=== PATIENT | female | born 1945 | race Caucasian/White ===

== ENCOUNTER 2021-05-20 10:42 | Emergency (ER) | payer MEDICARE, BC ==
[~2021-05-20] VITALS: Ht 162.6 cm; Wt 85.9 kg
[~2021-05-20 10:42] MED LIST: AMOX/K CLAV500 MG PO; AMOXICILLIN250 M1 PO; AMOXICILLIN500 M2 PO; AUGMENTIN500TAB PO; CIPRO XR500 M2 PO; KEFLEX500 MG PO; MACRODANTIN100 MG PO; METRONIDAZOL500 MG PO; NITROFURANTN100 M1 PO; ONDANSETRON4 MG PO; POTASSIUM GLUCONATE PO; TENORMIN PO; TENORMIN50 MG PO; TRIAM/HCTZ1 CAP PO; ULTRAM50 M1 PO
[2021-05-20 11:43] LABS: HEMATOCRIT 45.3 % (37.0-47.0); HEMOGLOBIN 14.8 g/dl (12.0-16.0); IMMATURE GRANULOCYTES 0.3 % (0.0-5.0); MEAN CELL VOLUME 96.4 fL CALC (80.0-100.0); MEAN CORPUSCULAR HGB 31.5 pG CALC (26.0-32.0); MEAN CORPUSCULAR HGB CONC 32.7 g/dL CAL (32.0-36.0); NEUT# 8.05 thou/uL (2.00-7.15); RED BLOOD COUNT 4.7 mill/uL (4.20-5.60); RED CELL DISTRI WIDTH 14.7 % (11.5-15.5)
[2021-05-20 12:06] LABS: ALBUMIN 3.7 g/dL (3.2-5.0); ALKALINE PHOSPHATASE 59 u/l (38-126); BILIRUBIN, TOTAL 0.8 mg/dL (0.0-1.4); BUN 21 mg/dL (8-23); BUN/CREATININE RATIO 17 (12-20 (CALC)); CARBON DIOXIDE 30 mmol/l (22-30); CHLORIDE 93 mmol/l (95-108); CREATININE 1.2 mg/dL (0.5-1.0); GFR 44 ML/MIN (>=60 (CALC)); GFR FOR AFR.AMER. 53 ML/MIN (>=60 (CALC)); POTASSIUM 3.7 mmol/l (3.5-5.1); TOTAL PROTEIN 7.2 g/dL (6.3-8.2)
[2021-05-20 12:18] LABS: MYOGLOBIN 137 ng/mL (0 - 62)
[2021-05-20 12:26] LABS: ANION GAP 13 (6-22 (CALC)); SGOT/AST 83 u/l (9-36); SODIUM 132 mmol/l (137-146)
[2021-05-20 14:28] VITALS: BP 153/70
== END 2021-05-20 14:30 | disposition left against medical advice (07) ==
LOC: ED 10:42
PROVIDERS: Emergency Medicine
DX: U07.1 COVID-19 (principal); R09.02 Hypoxemia; I10 Essential (primary) hypertension; Z91.19 Patient's noncompliance with other medical treatment and regimen
CPT/HCPCS: Q9967

== ENCOUNTER 2021-05-22 17:18 | Inpatient (IN) | payer MEDICARE, BC ==
[~2021-05-22] VITALS: Ht 152.4 cm; Wt 83.3 kg
[2021-05-22 17:53] LABS: GFR 54 ML/MIN (>=60 (CALC)); GFR FOR AFR.AMER. > 60 ML/MIN (>=60 (CALC))
[2021-05-22 18:19] LABS: HEMATOCRIT 48.1 % (37.0-47.0); HEMOGLOBIN 15.5 g/dl (12.0-16.0); MEAN CELL VOLUME 96.4 fL CALC (80.0-100.0); MEAN CORPUSCULAR HGB 31.1 pG CALC (26.0-32.0); MEAN CORPUSCULAR HGB CONC 32.2 g/dL CAL (32.0-36.0); NEUT# 10.36 thou/uL (2.00-7.15); RED BLOOD COUNT 4.99 mill/uL (4.20-5.60); RED CELL DISTRI WIDTH 14.4 % (11.5-15.5)
[2021-05-22 18:31] LABS: ALBUMIN 3.9 g/dL (3.2-5.0); ALKALINE PHOSPHATASE 73 u/l (38-126); ANION GAP 13 (6-22 (CALC)); BILIRUBIN, TOTAL 0.9 mg/dL (0.0-1.4); BUN 18 mg/dL (8-23); BUN/CREATININE RATIO 18 (12-20 (CALC)); C-REACTIVE PROTEIN 7.3 mg/dL (0-0.9); CARBON DIOXIDE 27 mmol/l (22-30); CHLORIDE 96 mmol/l (95-108); GFR 54 ML/MIN (>=60 (CALC)); GFR FOR AFR.AMER. > 60 ML/MIN (>=60 (CALC)); POTASSIUM 3.7 mmol/l (3.5-5.1); SGOT/AST 66 u/l (9-36); SODIUM 132 mmol/l (137-146); TOTAL PROTEIN 7.5 g/dL (6.3-8.2)
--- NOTE | 2021-05-22 20:15 | NUR ---
Reassessment of patient completed. No distress noted.
[2021-05-22 20:44] LABS: URINE BILIRUBIN - DIPSTICK NEGATIVE (NEGATIVE); URINE BLOOD DIPSTICK NEGATIVE (NEGATIVE); URINE COLOR YELLOW; URINE GLUCOSE - DIPSTICK NEGATIVE (NEGATIVE); URINE KETONE NEGATIVE (NEGATIVE); URINE LEUK ESTERASE NEGATIVE (NEGATIVE); URINE PH 7.5 (4.5-8.0); URINE PROTEIN - DIPSTICK TRACE mg/dL (NEG-TRACE); URINE SPECIFIC GRAVITY 1.025
[2021-05-22 20:46] LABS: URINE NITRITE - DIPSTICK NEGATIVE (Negative)
--- NOTE | 2021-05-22 22:25 | NUR ---
Admission Note Report Given to: Thomas TINAJERO LPN Transported by: Wheelchair X Stretcher Transported with: X Nurse Transporter X Patent IV X O2 X Sql Report Writer Location: ICU X MS2
--- NOTE | 2021-05-22 22:35 | NUR ---
PT ARRIVED ON UNIT ESCORTED BY ER STAFF VIA STRETCHER. ASSESSMENTS COMPLETE, PLEASE SEE DOCUMENTATION. 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 PT ALSO HAS A HX WITH CARPAL TUNNEL WHICH DECREASES HER ABILITY TO FEEL ITEMS WITH HER FINGERS. TUBER OPERATOR APPLIED TELEMETRY STCKER OVER CALL WELCH SO THAT PT WILL BE ABLE TO FEEL STICKER AND WHERE TO PRESS TO ASK FOR ASSISTANCE. PT WAS ABLE TO SUCCESSFULLY PRESS CALL LIGHT X 2 WITHOUT ASSISTANCE. BREATHING IS EVEN AND UNLABORED. NO S/S OF DISTRESS NOTED. IV REMAINS TO LFA-SL, FLUSHES EASILY. SAFETY PRECAUTIONS REMAIN IN PLACE. WILL CONTINUE TO MONITOR
[2021-05-22 23:00] VITALS: BP 169/78
--- NOTE | 2021-05-23 | NUR ---
PT RESTING QUIETLY, NO CONCERNS VOICED. NO S/S OF DISTRESS NOTED. BREATHING IS EVEN AND UNLABORED. PT CONTINUES ON 7L OF HIGH FLOW O2 VIA NC, TOLERATING WELL. O2 SATURATIONS REMAINING ABOVE 90% ON CURRENT O2 ORDERS. SAFETY PRECAUTIONS REMAIN IN PLACE. WILL MONITOR
[2021-05-23 00:59] VITALS: BP 160/70
--- NOTE | 2021-05-23 04:15 | NUR ---
PT RESTING QUIETLY. BREATHING IS EVEN AND UNLABORED. NO COMPLAINTS VOICED AT THIS TIME. SAFETY PRECAUTIONS REMAIN IN PLACE. WILL MONITOR
[2021-05-23 04:39] VITALS: BP 164/70
[2021-05-23 05:40] LABS: HEMATOCRIT 44.8 % (37.0-47.0); HEMOGLOBIN 14.4 g/dl (12.0-16.0); MEAN CELL VOLUME 97.6 fL CALC (80.0-100.0); MEAN CORPUSCULAR HGB 31.4 pG CALC (26.0-32.0); MEAN CORPUSCULAR HGB CONC 32.1 g/dL CAL (32.0-36.0); NEUT# 6.85 thou/uL (2.00-7.15); RED BLOOD COUNT 4.59 mill/uL (4.20-5.60); RED CELL DISTRI WIDTH 14.2 % (11.5-15.5)
[2021-05-23 06:00] LABS: ALKALINE PHOSPHATASE 63 u/l (38-126); ANION GAP 13 (6-22 (CALC)); BILIRUBIN, TOTAL 0.7 mg/dL (0.0-1.4); BUN 18 mg/dL (8-23); BUN/CREATININE RATIO 19 (12-20 (CALC)); C-REACTIVE PROTEIN 5.2 mg/dL (0-0.9); CARBON DIOXIDE 26 mmol/l (22-30); CHLORIDE 101 mmol/l (95-108); CREATININE 0.9 mg/dL (0.5-1.0); GFR > 60 ML/MIN (>=60 (CALC)); GFR FOR AFR.AMER. > 60 ML/MIN (>=60 (CALC)); POTASSIUM 4.2 mmol/l (3.5-5.1); SGOT/AST 50 u/l (9-36); SODIUM 135 mmol/l (137-146); TOTAL PROTEIN 6.1 g/dL (6.3-8.2)
--- NOTE | 2021-05-23 07:15 | NUR ---
BEDSIDE REPORT RECEIVED. WILL MONITOR.
[2021-05-23 11:06] VITALS: BP 162/65
[2021-05-23 15:10] VITALS: BP 148/65
--- NOTE | 2021-05-23 15:29 | NUR ---
PT LYING IN BED ASLEEP, CAMERA MONITORING. NO DISTRESS NOTED, WILL CONTINUE TO MONITOR.
[2021-05-23 19:00] VITALS: BP 165/72
--- NOTE | 2021-05-23 20:10 | NUR ---
pt resting quietly in bed, no complaints voiced at this time. denies pain. breathing even and unlabored. pt refused lovenox injection, educated on the rationale behind medication, pt continued to refuse. assessments completed, please see documentation. safety precautions remain in place. will continue to monitor
[2021-05-24] VITALS: BP 134/57
--- NOTE | 2021-05-24 | NUR ---
pt remains stable at this time. o2 saturations remain between 90%-93%. breathing even and unlabored. safety precautions in place, will monitor
[2021-05-24 04:00] VITALS: BP 161/69
--- NOTE | 2021-05-24 04:07 | NUR ---
PT RESTING QUIETLY AT THIS TIME, NO COMPLANITS VOICED. BREATHING EVEN AND UNLABORED. BREATHING IS SHALLOW AT TIMES. SAFETY PRECAUTIONS REMAIN IN PLACE. NO S/S OF DISTRESS
--- NOTE | 2021-05-24 05:38 | NUR ---
UPON WALKING PAST PT ROOM, NOTED THAT PT WAS UP TO BSC WITHOUT HER O2 ON, PLACED PT BACK ON OYGEN PER ORDER AND NOTED THAT PT O2 SATURATION WAS 75%, PT WAS TAKING AN EXTENDED PERIOD OF TIME TO RECOVER, INCREASED HIGH FLOW TO 10L WHILE PT IS RECOVERING. PT REFUSES TO LAY IN THE PRONE POSITION. WILL DECREASE O2 ONCE PT HAS FULLY RECOVERED TO A NORMAL O2 SATURATION.
[2021-05-24 05:56] LABS: HEMATOCRIT 47.3 % (37.0-47.0); HEMOGLOBIN 15.1 g/dl (12.0-16.0); IMMATURE GRANULOCYTES 0.9 % (0.0-5.0); MEAN CELL VOLUME 98.7 fL CALC (80.0-100.0); MEAN CORPUSCULAR HGB 31.5 pG CALC (26.0-32.0); MEAN CORPUSCULAR HGB CONC 31.9 g/dL CAL (32.0-36.0); NEUT# 10.51 thou/uL (2.00-7.15); RED BLOOD COUNT 4.79 mill/uL (4.20-5.60); RED CELL DISTRI WIDTH 14.2 % (11.5-15.5)
[2021-05-24 06:10] LABS: ALBUMIN 3.2 g/dL (3.2-5.0); ALKALINE PHOSPHATASE 63 u/l (38-126); ANION GAP 12 (6-22 (CALC)); BILIRUBIN, TOTAL 0.6 mg/dL (0.0-1.4); BUN 23 mg/dL (8-23); BUN/CREATININE RATIO 24 (12-20 (CALC)); CARBON DIOXIDE 27 mmol/l (22-30); CHLORIDE 102 mmol/l (95-108); GFR 54 ML/MIN (>=60 (CALC)); GFR FOR AFR.AMER. > 60 ML/MIN (>=60 (CALC)); POTASSIUM 4.4 mmol/l (3.5-5.1); SGOT/AST 55 u/l (9-36); SODIUM 137 mmol/l (137-146); TOTAL PROTEIN 6.3 g/dL (6.3-8.2)
--- NOTE | 2021-05-24 08:00 | NUR ---
BEDSIDE REPORT RECEIVED, PT SITTING IN CHAIR WITH EYES CLOSED. ASSESSMENT PERFORMED. PT STATING SHE DOESNT FEEL GOOD AND SHE CANT DO ANYTHING FOR HERSELF. BREAKFAST PLACED AT BEDSIDE TABLE, PT STATED ITS GOING TO TAKE HER A FEW HOURS TO EAT. JUST LEAVE IT THERE. NO DISTRESS AT THIS TIME WILL CONTINUE TO MONITOR.
[2021-05-24 11:38] VITALS: BP 174/74
--- NOTE | 2021-05-24 14:08 | NUR ---
PT LYING IN BED EYES CLOSED. EGG SEPARATOR, IS REINFORCEMENT, TEACH AND TRAIN ON INHAILER USE/SE/INDICATION. VERBALIZES UNDERSTANDING.
--- NOTE | 2021-05-24 16:00 | NUR ---
RUNNING REMDESIVIR AND AZITHROMYCIN AT 150 PER HR, PT C/O PAIN AT IV SITE WHEN RAN A ORDERED SPEED
[2021-05-24 16:09] VITALS: BP 162/70
--- NOTE | 2021-05-24 18:50 | NUR ---
REPORT RECEIVED FROM Levi ASHER
[2021-05-24 18:54] VITALS: BP 154/68
--- NOTE | 2021-05-24 20:31 | NUR ---
PATIENT RESTING COMFORTABLY.NORMAL HEART SOUNDS SB ON TELE, CRACKLES IN LOWER BASES, DIMMINSHED LUNG SOUNDS ELSEWHERE. PT ON 8L HF READING 94-96%. ACTIVE BOWEL SOUNDS LAST BM 05/23, DENIES ANY ISSUES. #18 IN THE LAC SALINE LOCK PLAN OF CARE REVIEWED, CALL LIGHT AND BEDSIDE TABLE WITHIN REACH
[2021-05-25] VITALS: BP 162/67
--- NOTE | 2021-05-25 00:45 | NUR ---
PATIENT UP TO THE RESTROOM AT THIS TIME
[2021-05-25 04:00] VITALS: BP 165/87
--- NOTE | 2021-05-25 04:51 | NUR ---
PATIENT SLEEPING SOUNDLY, NO APPARENT DISTRESS, CALL LIGHT AND BEDISITE TABLE WITHIN REACH
[2021-05-25 05:33] LABS: HEMATOCRIT 43.3 % (37.0-47.0); IMMATURE GRANULOCYTES 1.3 % (0.0-5.0); MEAN CORPUSCULAR HGB 31.7 pG CALC (26.0-32.0); MEAN CORPUSCULAR HGB CONC 32.3 g/dL CAL (32.0-36.0); NEUT# 7.94 thou/uL (2.00-7.15); RED BLOOD COUNT 4.42 mill/uL (4.20-5.60)
[2021-05-25 05:59] LABS: ALBUMIN 2.7 g/dL (3.2-5.0); ALKALINE PHOSPHATASE 57 u/l (38-126); ANION GAP 11 (6-22 (CALC)); BILIRUBIN, TOTAL 0.5 mg/dL (0.0-1.4); BUN 22 mg/dL (8-23); BUN/CREATININE RATIO 25 (12-20 (CALC)); C-REACTIVE PROTEIN 1.8 mg/dL (0-0.9); CARBON DIOXIDE 26 mmol/l (22-30); CHLORIDE 103 mmol/l (95-108); CREATININE 0.9 mg/dL (0.5-1.0); GFR > 60 ML/MIN (>=60 (CALC)); GFR FOR AFR.AMER. > 60 ML/MIN (>=60 (CALC)); POTASSIUM 3.9 mmol/l (3.5-5.1); SGOT/AST 48 u/l (9-36); SODIUM 136 mmol/l (137-146); TOTAL PROTEIN 5.6 g/dL (6.3-8.2)
[2021-05-25 10:04] VITALS: BP 181/92
--- NOTE | 2021-05-25 10:04 | NUR ---
PATIENT IS SITTING IN THE SIDE OF THE BED. PATIENT STATED I'M LEAVEING I DON'T NEED TO BE HERE. PATIENT STATED THAT THEY ARE NOT DOING ANYTHING FOR HER.PATIENT IS ANXIOUS. ORIENT PATIENT TO ROOM AND PLACE. ASSESSMENT DONE. PATIENT IS ALERT AND ORIENT X2. PATIENT DENIES PAIN. PATIENT DENIES SOB. O2 AT 8L HF AND O2 READING 86%. INCREASE O2 TO 15L HFNC AND O2 READING 90%. PATIENT STATED SHE GOING HOME. PATIENT IS AGITATED. ENCOURAGE PATIENT TO STAY BECAUSE HER O2 IS LOW. PATIENT STATED SHE NOT TAKING HER MEDICATIONS. STATED SHE WANTS TO SEE DOCTOR. EXPLAIN TO PATIENT THAT DOCTOR IS ROUNDING WILL BE SEEING HER SOON. SAFETY PRECAUTIONS REINFORCED. BED ALARM IN PLACE AND CALL LIGHT IN REACH. NOTIFIED EDUARDO JACOBSEN AND DR. PALAFOX ABOUT PATIENT WANTING TO LEAVE, BP 181/92, AND O2 AT 15L HFNC.
--- NOTE | 2021-05-25 10:38 | NUR ---
MEDICATED PATIENT WITH ATIVAN PER ORDER. BED ALARM IN PLACE AND CALL LIGHT IN REACH.
[2021-05-25 11:26] VITALS: BP 161/66
--- NOTE | 2021-05-25 11:50 | NUR ---
PATIENT SET OFF THE BED ALARM. FOUND PATIENT KNEELING IN THE FLOOR NEXT TO THE BED AND NAKED. PATIENT DENIES FALLING. ASSISTED PATINET WITH GOWN AND BACK TO BED. PATIENT IS UNSTEADY. PATIENT STATED SHE WANTS TO LEAVE. O2 15L HFNC AND READING 93%. BED ALRAM AND CALL LIGHT IN REACH. NOTIFIED DR. PALAFOX ABOUT PATIENT. ORDERS RECEIVED.
--- NOTE | 2021-05-25 12:00 | NUR ---
PATIENT HAS SITTER AT BEDSIDE. PATIENT TOOK HER TELE OFF AND REFUSING THE TELE TO BE PLACE BACK AT THIS TIME. CALL LIGHT IN REACH. DR. JAVY HERNÁNDEZ..
--- NOTE | 2021-05-25 14:00 | NUR ---
PATIENT IS RESTING IN BED AND CALM. SITTER AT BED SIDE. PATIENT STATED THAT SHE IS [facility] AND IF WE ARE GETTING MORE ANIMALS. REORIENT PATIENT AND PATIENT VERNALIZE UNDERSTANDING. CALL LIGHT IN REACH.
--- NOTE | 2021-05-25 14:51 | NUR ---
Patient didn't participate with PT intervention today (patient was sound asleep and PT wasn't able to wake patient up).
[2021-05-25 14:55] VITALS: BP 147/69
--- NOTE | 2021-05-25 15:45 | NUR ---
PATIENT SITTING IN RECLINER. O2 AT 15L HFNC AND O2 READING 93%. PATIENT STATED SHE WANTS TO LEAVE. NOTIFED PATIENT THERE IS NO ORDERS FOR DC. CALL LIGHT IN REACH. SITTER IN ROOM.
--- NOTE | 2021-05-25 19:10 | NUR ---
REPORT RECEIVED FROM Gee COLBY RN
[2021-05-25 21:41] VITALS: BP 160/67
--- NOTE | 2021-05-25 21:41 | NUR ---
ALERT AND ORIENTED X 3, VS AND ASSEMENT COMPLETED. DIMMINSHED/CRACKLES LUNG SOUNDS THROUGHOUT BASES, PT ON 15L 93% NORMAL HEART SOUNDS, LAST TELE READING SB 46. NON PRODUCTIVE COUGH. PT DENIES NEED FOR COUGH MEDICINE AT THIS TIME. PT ACTIVE BOWEL SOUNDS THROUGHOUT ALL QUADRANTS, LAST REPORTED BOWEL MOVEMENT 05/25. #18 LFA SL, FLUSHED AND PATENT. PLAN OF CARE REVIEWED, CALL LIGHT AND BEDSIDE TABLE WITHIN REACH.
[2021-05-26 00:25] VITALS: BP 146/65; BP 150/70
[2021-05-26 00:30] VITALS: BP 158/72
[2021-05-26 03:50] VITALS: BP 165/66
--- NOTE | 2021-05-26 05:00 | NUR ---
PATIENT RESTING COMFROTABLY, SITTER OUTSIDE OF DOOR DENIES ANY NEEDS AT THIS TIME, CALL LIGHT AND BEDSIDE TABLE WITHIN REACH.
[2021-05-26 06:19] LABS: HEMATOCRIT 45.1 % (37.0-47.0); HEMOGLOBIN 14.3 g/dl (12.0-16.0); IMMATURE GRANULOCYTES 1.2 % (0.0-5.0); MEAN CELL VOLUME 99.3 fL CALC (80.0-100.0); MEAN CORPUSCULAR HGB 31.5 pG CALC (26.0-32.0); MEAN CORPUSCULAR HGB CONC 31.7 g/dL CAL (32.0-36.0); NEUT# 9.38 thou/uL (2.00-7.15); RED BLOOD COUNT 4.54 mill/uL (4.20-5.60); RED CELL DISTRI WIDTH 13.9 % (11.5-15.5)
[2021-05-26 06:39] LABS: ALBUMIN 2.6 g/dL (3.2-5.0); ALKALINE PHOSPHATASE 54 u/l (38-126); ANION GAP 11 (6-22 (CALC)); BILIRUBIN, TOTAL 0.5 mg/dL (0.0-1.4); BUN 21 mg/dL (8-23); BUN/CREATININE RATIO 25 (12-20 (CALC)); CARBON DIOXIDE 26 mmol/l (22-30); CHLORIDE 105 mmol/l (95-108); CREATININE 0.8 mg/dL (0.5-1.0); GFR > 60 ML/MIN (>=60 (CALC)); GFR FOR AFR.AMER. > 60 ML/MIN (>=60 (CALC)); POTASSIUM 4.2 mmol/l (3.5-5.1); SGOT/AST 41 u/l (9-36); SODIUM 137 mmol/l (137-146); TOTAL PROTEIN 5.4 g/dL (6.3-8.2)
[2021-05-26 08:45] VITALS: BP 163/74
--- NOTE | 2021-05-26 08:55 | NUR ---
t medicated as orders provide for AM meds. V/s assessed at this time. Pt oiced mild anxiety over having to be "in this room in the hospital." I eassured her when her oxygen sat levels improve she can be discharged. Pt is 6% on 15Lnc High flow, titated to 12L with stable 02 sats holding at 95% Will ontinue to monitor for maintaining 02 sats. Pt denies n/v/d or cough at this sanjuana. Pt answered questions appropriately w/year, location/circumstance, self, ob. Sitter is at side and monitor in place.
--- NOTE | 2021-05-26 10:17 | NUR ---
PT SLEEPING, APPEARS CALM, AWOKE TO MY VOICE. OXYGEN SAT @95% ON 12L PHYSICIAN AND METAL SOLDERER IN WITH PT AT THIS TIME.
--- NOTE | 2021-05-26 10:50 | NUR ---
RECEIVED CALL FROM PT'S SON, INFORMED HIM OF CARE STATUS AND PT'S STATUS AT THIS TIME. VERBALIZED UNDERSTANDING AND THANKS FOR CARE PROVIDED. I ENCOURAGED HIM TO CALL BACK ANYTIME FOR INFORMATION AND UPDATE.
--- NOTE | 2021-05-26 12:43 | NUR ---
PT ASSISTED TO BSC AND BACK TO THE BED. PT REMINDED OF CALL LIGHT, DUE TO SETTING OFF BED ALARM. PT VOICES FRUSTRATION AT HAVING TO CALL FOR ASSISTANCE, STATING "I CAN GET UP MYSELF, I DON'T NEED YOU." I REMINDED HER OF BEING FOUND ON THE FLOOR THE PRIOR DAY. SHE ASKED "WHAT NURSE SAID THAT? I WAS NOT ON THE FLOOR." PT ASKED FOR PUDDING, PROVIDED. SHE IS NOW REFUSING THE PUDDING AT THIS TIME AND SAYING SHE WANTS TO WAIT TO EAT THAT, IT IS LEFT AT BEDSIDE. PT NOW BACK IN THE BED W/TABLE W/IN REACH. SHE HAS BEEN REMINDED OF CALL LIGHT USE MULTIPLE TIMES AND BED ALARM PLACED BACK ON SENSITIVE MODE WITH MONITOR VOLUME UP AT NURSES STATION.
--- NOTE | 2021-05-26 14:39 | NUR ---
PT MEDICATED ORDERS PROVIDE AND PT ASSISTED TO BSC. I ALSO ASSISTED WITH PO FLUIDS AND EATING PUDDING. CALL LIGHT AT SIDE.
[2021-05-26 14:48] VITALS: BP 160/70
--- NOTE | 2021-05-26 16:14 | NUR ---
PT CALLED TO REPORT BEEPING IN ROOM. IV ANTI-VIRAL COMPLETE AND IV ANTIBIOTIC THERAPY ADMINISTERED AT THIS TIME. PT IS ASKING QUESTIONS ABOUT THE MEDICATIONS WE ARE GIVING HER AND QUESTIONING HOW LONG IT IS TAKING. I REASSURED HER THAT IT IS NOT A QUICK ILLNESS TO OVER AND THAT OUR MAIN GOAL AT THIS POINT IS TO KEEP HER OXYGEN SAT LEVELS STABLE. I EDUCATED HER ON THE PROCESS IF WE ARE UNABLE TO MAINTAIN HER 02 LEVELS, SHE VERBALIZED UNDERSTANDING. WE PRACTICED THE CALL LIGHT SEVERAL TIMES WHILE I WAS IN THE ROOM, SHE EXPRESSED CONCERN THAT SHE FELT IT WASN'T WORKING. BED ALARM ON W/MONITOR ON AND SOUND UP AT NURSES STATION FOR MONITORING.
--- NOTE | 2021-05-26 19:00 | NUR ---
REPORT RECEIVED FROM Alexandra LOTT RN
--- NOTE | 2021-05-26 20:15 | NUR ---
ALERT AND ORIENTED X 3, VS AND ASSEMENT COMPLETED. DIMMINSHED/CRACKLES LUNG SOUNDS THROUGHOUT BASES, PT ON 10L 93% NORMAL HEART SOUNDS, LAST TELE READING SB 56. NON PRODUCTIVE COUGH. PT DENIES NEED FOR COUGH MEDICINE AT THIS TIME. PT ACTIVE BOWEL SOUNDS THROUGHOUT ALL QUADRANTS, LAST REPORTED BOWEL MOVEMENT 05/26. #18 LFA SL, FLUSHED AND PATENT. PLAN OF CARE REVIEWED, CALL LIGHT AND BEDSIDE TABLE WITHIN REACH.
[2021-05-26 21:11] VITALS: BP 130/60
[2021-05-27] VITALS (7 sets, daily range): BP systolic 148–185; BP diastolic 65–74
--- NOTE | 2021-05-27 00:30 | NUR ---
PATIENT OBSERVED GETTTING OUT OF BED AND ON THE BEDSIDE COMMODE, STATES SHE DOES NOT LIKE THE SOUND OF THE BED ALARM GOING OFF, PT ADVISED TO CALL AND WE WOULD ASSIST HER. PT ASSSITED BACK TO BED, CALL LIGHT AND BEDSIDE TABLE WITHIN REACH.
--- NOTE | 2021-05-27 05:14 | NUR ---
PATIENT SLEEPING SOUNDLY, IN NO APPARENT DISTRESS, AWOKEN BY WRITTER, DENIES ANY NEEDS, DRY COUGH NOTED. CALL LIGHT AND BEDSIDE TABLE WITHIN REACH.
[2021-05-27 05:24] LABS: HEMATOCRIT 45.4 % (37.0-47.0); HEMOGLOBIN 14.2 g/dl (12.0-16.0); IMMATURE GRANULOCYTES 1.8 % (0.0-5.0); MEAN CELL VOLUME 99.1 fL CALC (80.0-100.0); MEAN CORPUSCULAR HGB CONC 31.3 g/dL CAL (32.0-36.0); NEUT# 10.03 thou/uL (2.00-7.15); RED BLOOD COUNT 4.58 mill/uL (4.20-5.60); RED CELL DISTRI WIDTH 14.1 % (11.5-15.5)
[2021-05-27 05:51] LABS: ALBUMIN 2.7 g/dL (3.2-5.0); ALKALINE PHOSPHATASE 58 u/l (38-126); ANION GAP 10 (6-22 (CALC)); BILIRUBIN, TOTAL 0.6 mg/dL (0.0-1.4); BUN 21 mg/dL (8-23); BUN/CREATININE RATIO 24 (12-20 (CALC)); C-REACTIVE PROTEIN 3.9 mg/dL (0-0.9); CARBON DIOXIDE 27 mmol/l (22-30); CHLORIDE 103 mmol/l (95-108); CREATININE 0.9 mg/dL (0.5-1.0); GFR > 60 ML/MIN (>=60 (CALC)); GFR FOR AFR.AMER. > 60 ML/MIN (>=60 (CALC)); POTASSIUM 4.2 mmol/l (3.5-5.1); SGOT/AST 33 u/l (9-36); SODIUM 136 mmol/l (137-146); TOTAL PROTEIN 5.4 g/dL (6.3-8.2)
--- NOTE | 2021-05-27 13:45 | NUR ---
OR CALLED AND WILL BRING PATIENT BACK TO THE FLOOR
--- NOTE | 2021-05-27 19:00 | NUR ---
REPORT RECEIVED Pavan PARKS RN, CARE OF PT ASSUMED AT THIS TIME.
--- NOTE | 2021-05-27 19:52 | NUR ---
PT SITTING UP FINISHING DINNER. SPO2 90% ON HIGH FLOW NASAL CANNULA AT 10L/MIN. WATER FOR HUMIDITY REPLACED. PT RESPIRATIONS REGULAR AND UNLABORED. ABLE TO HOLD CONVERSATION WITHOUT DROP IN SP02. PT ASSISTED UP TO BSC TO VOID AND BACK TO BED.
[2021-05-28] VITALS: BP 121/58
[2021-05-28 04:00] VITALS: BP 152/65
--- NOTE | 2021-05-28 04:34 | NUR ---
Nia AGUILAR, CUSTOMER SERVICE AGENT IN ROOM COLLECTING AM LABS.
[2021-05-28 06:03] LABS: HEMATOCRIT 45.6 % (37.0-47.0); HEMOGLOBIN 14.3 g/dl (12.0-16.0); IMMATURE GRANULOCYTES 1.8 % (0.0-5.0); MEAN CELL VOLUME 98.5 fL CALC (80.0-100.0); MEAN CORPUSCULAR HGB 30.9 pG CALC (26.0-32.0); MEAN CORPUSCULAR HGB CONC 31.4 g/dL CAL (32.0-36.0); NEUT# 9.12 thou/uL (2.00-7.15); RED BLOOD COUNT 4.63 mill/uL (4.20-5.60); RED CELL DISTRI WIDTH 14.1 % (11.5-15.5)
--- NOTE | 2021-05-28 08:00 | NUR ---
PT AWAKE ALERT AND ORIENTED. PT DENIES ANY PAIN OR DISTRESS AT THIS TIME. IV INTACT AND PATENT. VS AND ASSESSMENT COMPLETE. LUNGS DIMINISHED. BREATHS EVEN AND UNLABORED ON HIGH FLOW OXYGEN VIA NASAL CANNULA. PERIPHERAL PULSES PALPABLE AND STRONG. ABDOMEN ROUND AND NONTENDER. SKIN IS INTACT. SAFETY PRECAUTIONS ARE IN PLACE AND CALL LIGHT IS WITHIN PATIENTS REACH. WILL MONITOR PT CLOSELY
[2021-05-28 10:13] LABS: ALBUMIN 2.6 g/dL (3.2-5.0); ALKALINE PHOSPHATASE 56 u/l (38-126); ANION GAP 9 (6-22 (CALC)); BILIRUBIN, TOTAL 0.7 mg/dL (0.0-1.4); BUN 24 mg/dL (8-23); BUN/CREATININE RATIO 25 (12-20 (CALC)); CARBON DIOXIDE 25 mmol/l (22-30); CHLORIDE 107 mmol/l (95-108); GFR 54 ML/MIN (>=60 (CALC)); GFR FOR AFR.AMER. > 60 ML/MIN (>=60 (CALC)); POTASSIUM 4.3 mmol/l (3.5-5.1); SGOT/AST 30 u/l (9-36); SODIUM 137 mmol/l (137-146); TOTAL PROTEIN 5.4 g/dL (6.3-8.2)
--- NOTE | 2021-05-28 10:55 | NUR ---
RETURNED CALL TO ESTELA BAUER AT [phone]. UPDATE OF PATIENTS STATUS GIVEN. ALL QUESTIONS ANSWERED
[2021-05-28 10:56] VITALS: BP 159/91
--- NOTE | 2021-05-28 12:00 | NUR ---
PT AWAKE AND RESTING COMFORTABLY IN BED. IV PATENT. PT DENIES ANY PAIN OR DISCOMFORT AT THIS TIME. SAFETY MEASURES ARE IN PLACE. CALL LIGHT WITHIN PATIENT'S REACH. WILL CONTINUE TO MONITOR CLOSELY
[2021-05-28 14:55] VITALS: BP 180/75
--- NOTE | 2021-05-28 16:03 | NUR ---
PATIENT DISLODGED 2ND IV TODAY.
--- NOTE | 2021-05-28 16:10 | NUR ---
PT RESTING COMFORTABLY IN BED. NO SIGNS OF PAIN OR DISTRESS. PT HAS NO IMMEDIATE NEEDS AT THIS TIME. SAFETY PRECAUTIONS MAINTAINED. CALL LIGHT WITHIN PATIENT REACH. WILL CONTINUE TO MONITOR
[2021-05-28 19:00] VITALS: BP 153/69
--- NOTE | 2021-05-28 19:15 | NUR ---
ASSESSMENT COMPLETE. PATIENT ALERT AND ORIENTED. ANSWERS APPROPRIATELY. DENIES ANY PAIN OR SHORTNESS OF BREATH. CALL LIGHT AND BELONGINGS WITHIN REACH.
[2021-05-29] VITALS (8 sets, daily range): BP systolic 140–187; BP diastolic 64–105
--- NOTE | 2021-05-29 00:23 | NUR ---
APRESOLINE 10MG IV GIVEN PRN ORDERS PROVIDE FOR BP OF 187/81.
--- NOTE | 2021-05-29 02:20 | NUR ---
PATIENT RESTING IN BED. REFILLED HER HIGH FLOW OXYGEN. NO COMPLAINTS VOICED AT THIS TIME.
--- NOTE | 2021-05-29 04:49 | NUR ---
RECHECKED PATIENTS BP MANUALLY. NO COMPLAINTS VOICED AT THIS TIME.
[2021-05-29 05:45] LABS: HEMATOCRIT 46.2 % (37.0-47.0); HEMOGLOBIN 14.9 g/dl (12.0-16.0); IMMATURE GRANULOCYTES 1.9 % (0.0-5.0); MEAN CELL VOLUME 98.1 fL CALC (80.0-100.0); MEAN CORPUSCULAR HGB 31.6 pG CALC (26.0-32.0); MEAN CORPUSCULAR HGB CONC 32.3 g/dL CAL (32.0-36.0); NEUT# 10.46 thou/uL (2.00-7.15); RED BLOOD COUNT 4.71 mill/uL (4.20-5.60); RED CELL DISTRI WIDTH 14.1 % (11.5-15.5)
[2021-05-29 06:10] LABS: ALBUMIN 2.8 g/dL (3.2-5.0); ALKALINE PHOSPHATASE 62 u/l (38-126); ANION GAP 7 (6-22 (CALC)); BUN 23 mg/dL (8-23); BUN/CREATININE RATIO 26 (12-20 (CALC)); C-REACTIVE PROTEIN 3.6 mg/dL (0-0.9); CARBON DIOXIDE 27 mmol/l (22-30); CHLORIDE 106 mmol/l (95-108); CREATININE 0.9 mg/dL (0.5-1.0); GFR > 60 ML/MIN (>=60 (CALC)); GFR FOR AFR.AMER. > 60 ML/MIN (>=60 (CALC)); POTASSIUM 4.3 mmol/l (3.5-5.1); SGOT/AST 30 u/l (9-36); SODIUM 136 mmol/l (137-146); TOTAL PROTEIN 5.9 g/dL (6.3-8.2)
[2021-05-29 06:13] LABS: BILIRUBIN, TOTAL 0.8 mg/dL (0.0-1.4)
--- NOTE | 2021-05-29 07:00 | NUR ---
PATIENT LAYING IN BED AT THIS TIME PATIENT IS ALERT AND ORIENTED AND WAS REMINDED NOT TO GET UP WITHOUT ASSISTANCE DUE TO HER VISUAL LOWE BEING ALTER DUE TO HER HISTORY OF MACULAR DEGENERATION. PATIENT AGREED AND BED ALARM ON AND PATIENT REMAINS ON CAMERA. AUCTIONEER ART DONE AT THIS TIME SEE INTERVENTIONS. LUNG LOWE ARE CLEAR IN UPPER LOWE AND DIMINISHED IN LOWER, PATIENT IS ON HI-FLOW O2 AT 15L AND HER SPO2 IS 92%. PATIENT IS ON TELE MONITOR AND BEING MONITORED BY ED. SIDERAILS ARE UP X 2 CALL LIGHT WITHIN REACH. PATIENT EXPRESS BEING VERY TIRED DUE TO NOT SLEEPING DURING THE NIGHT. WILL CONTINUE TO MONITOR.
--- NOTE | 2021-05-29 09:31 | NUR ---
PHYSICAL THERAPY IN TO WORK WITH PATIENT AT THIS TIME.
--- NOTE | 2021-05-29 09:40 | NUR ---
DR. BARRIOS AND DELMAR CHRISTENSEN ARPN IN TO SEE PATIENT AT THIS TIME.
--- NOTE | 2021-05-29 09:51 | NUR ---
PATIENT COMPLAINING OF FEELING JITTERY AFTER TAKING DECADRON AND PER ORDER PATIENT GIVEN 0.5MG OF XANAX FOR ANXIETY AT THIS TIME. PATIENT REMINDED NOT TO GET UP WITHOUT ASSISTANCE. BED ALARM ON AND PATIENT ROOM BEING MONITORED BY CAMERA. SIDERAILS ARE UP X 3 CALL LIGHT IS WITHIN REACH. .
--- NOTE | 2021-05-29 10:10 | NUR ---
PATEINT RESTING IN BED AT THIS TIME WITH EYES CLOSED RESPIRATIONS EASY AND UNLABORED. 02 ON AT 15L HI-FLOW AND SPO2 IS 95% AT THIS TIME. SIDERAILS ARE UP X 3 BED ALARM ENGAGED AND PATIENT BEING MONITORED BY CAMERA. SON OF PATIENT CALLED TO CHECK ON MOTHER AT THIS TIME AND REPORT GIVEN. WILL CONTINUE TO MONITOR.
--- NOTE | 2021-05-29 11:39 | NUR ---
PATIENT RESTING IN BED AT THIS TIME. PATIENT REMAINS ON 15L OF HI-FLOW O2 AT THIS TIME. SPO2 CURRENTLY IS 90%. PATIENT SIDERAILS ARE UP CALL LIGHT WITHIN REACH. PATIENT BED ALARM ENGAGED AND PATIENT REMAIS TO BE VISUALIZED BY CAMERA. PATIENT REFUSING TO EAT LUNCH STATES SHE IS TOO TIRE AND NEEDS TO SLEEP. WILL CONTINUE TO MONITOR.
--- NOTE | 2021-05-29 13:02 | NUR ---
Patient participated with PT intervention today. Patient carried out B LE AAROM exercises: hip flexion, hip adduction, hip abduction, hamstring curls, knee extension, and ankle pumps for 10 reps x 2 sets with occasional verbal and tactile cuing to help decrease trick movements and fall risks. Patient participated with log rolling bed mobility ADLs with 1 to 2 attempts with verbal and tactile cuing to help decrease trick movements and fall risks.
--- NOTE | 2021-05-29 13:14 | NUR ---
PATIENT ASSISTED UP TO CHAIR AT THIS TIME. PATIENT STATES SHE HAD THE "BEST LUNCH" EVER AND THAT SHE FEELS VERY RESTED. PATIENT DENIES ANY PAIN AT THIS TIME. 02 REMAINS ON AT 15L AND SPO2 IS 93% AT THIS TIME. WILL CONTINUE TO MONITOR. CALL LIGHT IN HAND
--- NOTE | 2021-05-29 15:30 | NUR ---
PATIENT GIVEN 0.5MG OF XANAX AT THIS TIME DUE TO FEELING MILDLY ANXIOUS REGARDING TAKING THE IV THEARPY (ZITHROMAX) MEDICATION. IV AZTHROMYCIN WAS HUNG AND RAN IN A SLOWER RATE TO DECREASE PAIN AT THIS TIME. SIDERAILS ARE UP CALL LIGHT WITHIN REACH AND PATIENT VERBALIZES UNDERSTANDING OF NOT GETTING UP WITHOUT ASSISTANCE.
--- NOTE | 2021-05-29 16:09 | NUR ---
PATIENT RESTING COMFORTABLY IN BED AT THIS TIME. PATIENT DENIES ANY NEEDS AND PATIENT REMAINS ON HI-FLOW O2 AT 15L AND SPO2 IS CURRENTLY 93% AT THIS TIME. PATIENT CONTINUES TO HAVE TELE MONITOR IN PLACE AND BEING MONITORED BY ED. SIDERAILS ARE UP CALL LIGHT WITHIN REACH.
--- NOTE | 2021-05-29 18:02 | NUR ---
PATIENT ASSISTED TO BEDSIDE COMMODE TO URINATE AT THIS TIME. PATIENT THEN ASSISTED TO CHAIR WITHOUT ISSUES. O2 REMAINS ON AT 15L HI-FLOW AT THIS TIME. CALL LIGHT IS WITHIN REACH PATIENT REMAINS ON CAMERA.
--- NOTE | 2021-05-29 19:00 | NUR ---
Report received from Barney Omer Rn
--- NOTE | 2021-05-29 21:00 | NUR ---
Alert and oriented x3. Patient laying in bed. Normal heart sounds, last tele reading sr 61. Clear/Dimminished lung sounds, on 15L HF reading 95%. Active bowel sounds throughout all quadrants. Last reported bowel movement 05/29. #18 in LFA Sl, flushed and patent. Plan of care reviewed with patient, call light and bedside table within reach.
--- NOTE | 2021-05-29 23:31 | NUR ---
Pt sleeping soundly, undisturbed by writter. Call light and bedside table within reach.
[2021-05-30] VITALS: BP 140/67
[2021-05-30 04:00] VITALS: BP 154/68
[2021-05-30 05:44] LABS: HEMATOCRIT 49.4 % (37.0-47.0); HEMOGLOBIN 15.5 g/dl (12.0-16.0); IMMATURE GRANULOCYTES 1.5 % (0.0-5.0); MEAN CELL VOLUME 99.8 fL CALC (80.0-100.0); MEAN CORPUSCULAR HGB 31.3 pG CALC (26.0-32.0); MEAN CORPUSCULAR HGB CONC 31.4 g/dL CAL (32.0-36.0); NEUT# 11.22 thou/uL (2.00-7.15); RED BLOOD COUNT 4.95 mill/uL (4.20-5.60); RED CELL DISTRI WIDTH 14.3 % (11.5-15.5)
[2021-05-30 06:08] LABS: ALBUMIN 2.9 g/dL (3.2-5.0); ALKALINE PHOSPHATASE 65 u/l (38-126); ANION GAP 10 (6-22 (CALC)); BILIRUBIN, TOTAL 0.7 mg/dL (0.0-1.4); BUN 29 mg/dL (8-23); BUN/CREATININE RATIO 28 (12-20 (CALC)); CARBON DIOXIDE 26 mmol/l (22-30); CHLORIDE 106 mmol/l (95-108); GFR 54 ML/MIN (>=60 (CALC)); GFR FOR AFR.AMER. > 60 ML/MIN (>=60 (CALC)); POTASSIUM 4.7 mmol/l (3.5-5.1); SGOT/AST 29 u/l (9-36); SODIUM 137 mmol/l (137-146); TOTAL PROTEIN 5.9 g/dL (6.3-8.2)
--- NOTE | 2021-05-30 08:00 | NUR ---
PT ALERT AND ORIENTED. PT SITTING ON SIDE OF BED. PT DENIES AND PAIN OR DISCOMFORT AT THIS TIME. VS AND ASSESSMENT COMPLETE. LUNGS SOUNDS ARE DIMINISHED, BREATHS EVEN AND UNLABORED. BOWEL SOUNDS ACTIVE. ABD ROUND,SOFT NONTENDER. PERIPHERAL PULSES PALPABLE. IV INTACT AND PATENT. PT WILL CONTINUE O2 THERAPY. SAFETY MEASURES IN PLACE. CALL LIGHT WITHIN PATIENTS REACH. WILL MONITOR PATIENT CLOSELY
--- NOTE | 2021-05-30 09:27 | NUR ---
Pt screened by ST. Pt may benefit from an ST consult if medical team agrees.
--- NOTE | 2021-05-30 11:26 | NUR ---
Patient participated with PT intervention today. Patient carried out B LE AROM exercises in seated position: hip flexion, hamstring curls, hip adduction, hip abduction, knee extension, and ankle pumps for 15 reps x 2 sets with occasional verbal and tactile cuing to help decrease fall risks and improve transfer capability. Patient also participated with log rolling bed mobility and sit to stand push off transfer ADLs with 1 to 3 reps with occasional verbal and tactile cuing to help decrease trick movements and fall risks with transfer protocol (patient with macular degeneration).
[2021-05-30 11:33] VITALS: BP 121/61
[2021-05-30 16:58] VITALS: BP 130/64
--- NOTE | 2021-05-30 18:50 | NUR ---
Report recived from Gee Faith Rn
[2021-05-30 19:00] VITALS: BP 146/86
--- NOTE | 2021-05-30 19:35 | NUR ---
Alert and oriented x3. Patient laying in bed. Normal heart sounds, last tele reading sr 68. Clear/Dimminished lung sounds, on 15L HF reading 93%. Active bowel sounds throughout all quadrants. Last reported bowel movement 05/30. No current IV site, patient dislodged 2 in previous shift. Gee Faith states she advised she would attempt in AM. Plan of care reviewed with patient, call light and bedside table within reach.
[2021-05-31] VITALS (8 sets, daily range): BP systolic 129–150; BP diastolic 59–88
--- NOTE | 2021-05-31 | NUR ---
Patient obseverved getting, no additional oxygen required at this time.
--- NOTE | 2021-05-31 03:38 | NUR ---
Patient up to the restroom at this time. Denies any furthe needs.
[2021-05-31 05:12] LABS: HEMATOCRIT 47.6 % (37.0-47.0); HEMOGLOBIN 14.9 g/dl (12.0-16.0); IMMATURE GRANULOCYTES 1.1 % (0.0-5.0); MEAN CELL VOLUME 99.4 fL CALC (80.0-100.0); MEAN CORPUSCULAR HGB 31.1 pG CALC (26.0-32.0); MEAN CORPUSCULAR HGB CONC 31.3 g/dL CAL (32.0-36.0); NEUT# 10.69 thou/uL (2.00-7.15); RED BLOOD COUNT 4.79 mill/uL (4.20-5.60); RED CELL DISTRI WIDTH 14.2 % (11.5-15.5)
[2021-05-31 05:45] LABS: ALBUMIN 2.8 g/dL (3.2-5.0); BILIRUBIN, TOTAL 0.7 mg/dL (0.0-1.4); C-REACTIVE PROTEIN 2.3 mg/dL (0-0.9); CREATININE 1.1 mg/dL (0.5-1.0); POTASSIUM 4.6 mmol/l (3.5-5.1); TOTAL PROTEIN 5.8 g/dL (6.3-8.2)
--- NOTE | 2021-05-31 11:24 | NUR ---
Patient participated with PT intervention today. Patient did seated B LE AROM exercises doing hip flexion, hip adduction, hip abduction, hamstring curls, knee extension, and ankle pumps for 15 reps x 2 sets with occasional verbal and tactile cuing to help decrease trick movements and fall risks. Patient did log rolling bed mobility and sit to stand push off transfer ADLs (1 to 3 reps) with occasional verbal and tactile cuing to help decrease fall risks. Patient also did gait training with CGA x 1 covering 15 feet x 2 reps on level surfaces.
--- NOTE | 2021-05-31 11:34 | NUR ---
PT RESTING IN BED. PT DENIES PAIN AT THIS TIME. VS AND ASSESSMENT COMPLETE. LUNG SOUNDS CLEAR. IV INTACT AND PATENT. IV FLUIDS INFUSING. PT AMBULATED TO BATHROOM WITHOUT INCIDENT. SAFETY PRECAUTIONS IN PLACE. CALL LIGHT WITHIN PATIENT REACH WILL MONITOR CLOSELY
--- NOTE | 2021-05-31 17:07 | NUR ---
OT screeening complete: Further assessment not deemed necessary at this moment
--- NOTE | 2021-05-31 17:36 | NUR ---
PT TRANSFERED FROM M/S. REPORT FROM HOSSEIN ELIZABETH, PT MADE COMFORTABLE IN BED, PLACED ON MONITOR, DENIES ANY FURTHER NEEDS AT THIS TIME
--- NOTE | 2021-05-31 19:40 | NUR ---
Pt awake and asking for assistance to bsc. Call light was used. I assisted her to bsc and back to the bed. pt does have a pad for stress incontinence. Pt decided she wanted to sit on side of the bed to eat dinner, she stated that they bring it at 530 and it is too early. I set her up with her dinner tray and prepped her food for her. Left sitting on side of the bed eating with call light next to her w/in reach.
--- NOTE | 2021-05-31 20:46 | NUR ---
PT MEDICATED ORDERS PROVIDE AND ASSISTED POSTIIONING IN THE BED. PT ASKED FOR ME TO COVER HER UP, I ENCOURAGED HER TO SELF COVER, SHE REPLIED "I CAN'T" PT WAS JUST SITTING ON THE SIDE OF THE BED AND HAD REPOSITIONED HERSELF BACK IN THE BED. I REPLIED THAT SHE NEEDS TO TRY AND KEEP THAT INDEPENDENCE, SHE REPLIED [facility] YOU ARE RIGHT, THEY WON'T LET ME GO HOME IF I DON'T. PT QUICKLY COVERED HERSELF UP. I DID ASSIST HER REACHING WATER FOR MEDICATIONS. SHE AT 95% OF HER DINNER TRAY SELF FED AFTER TRAY WAS SET UP FOR HER.
--- NOTE | 2021-05-31 22:15 | NUR ---
Pt called for assistance to the bsc and back to the bed. Pt asked for me to tuck her in with blankets under her chin, I instructed her to adjust the covers for her own preference, she did this herself. I talked with her about retaining as much independence as she possibly can and she replied "oh yeah you told me I need to do that if I plan on going home." She quickly fixed her covers. V/s are stable at this time.
[2021-06-01] VITALS (14 sets, daily range): BP systolic 95–155; BP diastolic 43–74
--- NOTE | 2021-06-01 02:15 | NUR ---
PT CALLED FOR ASSISTANCE TO BSC. ASSISTED BACK TO THE BED 300CC OF DARK CLEAR YELLOW URINE. V/S ASSESSED AT THIS TIME. OXYGEN SAT LEVELS DROP UPON AMBULATING TO BSC DOWN TO 86% ON NC 15L HIGH FLOW. UPON RETURNING TO BED SHE RECOVERED TO 90%.
[2021-06-01 03:41] LABS: HEMATOCRIT 43.5 % (37.0-47.0); HEMOGLOBIN 13.8 g/dl (12.0-16.0); IMMATURE GRANULOCYTES 0.8 % (0.0-5.0); MEAN CORPUSCULAR HGB 31.7 pG CALC (26.0-32.0); MEAN CORPUSCULAR HGB CONC 31.7 g/dL CAL (32.0-36.0); NEUT# 11.43 thou/uL (2.00-7.15); RED BLOOD COUNT 4.35 mill/uL (4.20-5.60); RED CELL DISTRI WIDTH 14.1 % (11.5-15.5)
[2021-06-01 03:57] LABS: ALBUMIN 2.5 g/dL (3.2-5.0); ALKALINE PHOSPHATASE 51 u/l (38-126); ANION GAP 8 (6-22 (CALC)); BILIRUBIN, TOTAL 0.5 mg/dL (0.0-1.4); BUN 37 mg/dL (8-23); BUN/CREATININE RATIO 41 (12-20 (CALC)); CARBON DIOXIDE 26 mmol/l (22-30); CHLORIDE 106 mmol/l (95-108); CREATININE 0.9 mg/dL (0.5-1.0); GFR > 60 ML/MIN (>=60 (CALC)); GFR FOR AFR.AMER. > 60 ML/MIN (>=60 (CALC)); POTASSIUM 4.6 mmol/l (3.5-5.1); SGOT/AST 31 u/l (9-36); SODIUM 136 mmol/l (137-146); TOTAL PROTEIN 5.5 g/dL (6.3-8.2)
--- NOTE | 2021-06-01 05:44 | NUR ---
Pt called for assistance to bsc. Assisted pt and back to bed. Assisted w/jaqueline-care and stress incont pad replacement. Assisted her back to bed and positioning for comfort.
--- NOTE | 2021-06-01 07:04 | NUR ---
O2 SAT ON 15L HF 94%
--- NOTE | 2021-06-01 08:00 | NUR ---
PATIENT IS A/O X3, ABLE TO MAKE NEEDS KNOWN TO STAFF. STATES SHE IS BLIND IN BOTH EYES DUE TO MD. BREAKFAST AT BEDSIDE SET UP FOR HER "THE WAY i LIKE IT" IS WHAT THE PATIENT STATED. APPEARS TO BE HAPPY, SMILES OFTEN. DENIES PAIN AT THIS TIME. CLEAR TO DIMINIHSED LUNG SOUNDS. NORMAL SINUS RYTHEM ON MONITOR. STABLE VITAL SIGNS. ACTIVE BOWEL SOUNDS. SOFT NON TENDER ABDOMEN. EDEMA ON BILATERAL LOWER LEGS 1/2+. STRONG PULSES. ABLE TO SIT UP ON SIDE OF BED HERSELF TO EAT HER BREAKFAST. SAFETY MEASURES IN PLACE. CALL LIGHT IN REACH. WILL COTNINUE TO MONITOR PER HOSPITAL'S POLICY.
--- NOTE | 2021-06-01 10:00 | NUR ---
PATIENT IS RESTING IN BED.
--- NOTE | 2021-06-01 11:45 | NUR ---
PATIENT GOT OUT OF BED ON HER OWN AND WAS ABLE TO USE THE BEDSIDE COMMODE BY HERSELF.
--- NOTE | 2021-06-01 12:00 | NUR ---
PATIENT REQUESTED LUNCH TO BE LEFT ON SIDE TABLE, WILL WAK EUP TO EAT IT LATER.
--- NOTE | 2021-06-01 12:10 | NUR ---
O2 SAT ON 11L HF 97%. DECREASED TO 9L.
--- NOTE | 2021-06-01 14:28 | NUR ---
ESTELA THE SON CALLED, REQUESTED AN UPDATE, CODE PROVIDED, UPDATE GIVEN.
--- NOTE | 2021-06-01 18:05 | NUR ---
PATIENT IS SITTING UP ON THE SIDE OF THE BED EATING HER DINNER.
--- NOTE | 2021-06-01 19:40 | NUR ---
PT CALLED FOR ASSISTANCE TO BSC. DINNER TRAY COMPLETED 100% ASSISTANCE PROVIDED BY APPAREL PATTERN MAKER ON STAFF.
--- NOTE | 2021-06-01 23:00 | NUR ---
pt called for assistance going to bsc. Pt navigated it well w/out much assistance. Pt left back in the bed with lights off and tv on. She is watching the news.
[2021-06-02] VITALS (21 sets, daily range): BP systolic 96–160; BP diastolic 43–88
--- NOTE | 2021-06-02 02:00 | NUR ---
Pt assisted to bsc and back to the bed. 90% 02sat on 12LNC High Flow. Resp even and non-labored. Pt tolerated pivoting to bsc and back to bed well.
--- NOTE | 2021-06-02 04:05 | NUR ---
Lab is at bedside.
[2021-06-02 05:16] LABS: HEMATOCRIT 48.3 % (37.0-47.0); HEMOGLOBIN 15.4 g/dl (12.0-16.0); IMMATURE GRANULOCYTES 1.5 % (0.0-5.0); MEAN CELL VOLUME 99.6 fL CALC (80.0-100.0); MEAN CORPUSCULAR HGB 31.8 pG CALC (26.0-32.0); MEAN CORPUSCULAR HGB CONC 31.9 g/dL CAL (32.0-36.0); NEUT# 16.99 thou/uL (2.00-7.15); RED BLOOD COUNT 4.85 mill/uL (4.20-5.60); RED CELL DISTRI WIDTH 14.2 % (11.5-15.5)
--- NOTE | 2021-06-02 05:55 | NUR ---
Pt is sleeping, no s/o distress noted.
[2021-06-02 06:57] LABS: BILIRUBIN, TOTAL 0.6 mg/dL (0.0-1.4); CREATININE 1.1 mg/dL (0.5-1.0); POTASSIUM 4.6 mmol/l (3.5-5.1); TOTAL PROTEIN 6.2 g/dL (6.3-8.2)
[2021-06-02 07:01] LABS: ALBUMIN 3.1 g/dL (3.2-5.0)
--- NOTE | 2021-06-02 08:00 | NUR ---
PATIENT IS A/O X3, ABLE TO MAKE NEEDS KNOWN TO STAFF. DENIES PAIN AT THIS TIME. USED THE BEDSIDE COMMODE ON HER OWN WITH NO ISSUES. 2MM PERRLA BILATERAL EYES. SPEECH IS CLEAR. SINUS GURMEET ON THE MONITOR. ON 12L O2 HFNC SATS ARE 94%. WILL TRY TO TITRATE DOWN DURING THE SHIFT. CLEAR LUNG SOUNDS. ACTIVE BOWEL SOUNDS. SOFT OBESE ABDOMEN. TRACE EDEMA IN BLE. STRONG PULSES. STRONG AND QUAL HAND CLIENT ADVISOR. NO DRIFTS IN ARMS OR LEGS NOTED. VITALS ARE STABLE. BREAKFAST ON SIDE TABLE, SET UP AND EXPLAINED TO HER WHATS THERE. SAFETY MEASURES IN PLACE. CALL LIGHT IN REACH. WILL CONTINUE TO MONITOR PER HOSPITAL'S POLICY.
--- NOTE | 2021-06-02 09:01 | NUR ---
O2 SAT ON 12L HF 92%
--- NOTE | 2021-06-02 10:00 | NUR ---
PATIENT RESTING IN BED, STATED SHE IS FEELING "GREAT TODAY".
--- NOTE | 2021-06-02 12:00 | NUR ---
PATIENT IS SITTING ON SIDE OF THE BED EATING LUNCH.
--- NOTE | 2021-06-02 14:07 | NUR ---
ESTELA THE PATIENT'S SON CALLED, CODE PROVIDED, UPDATE WAS GIVEN.
--- NOTE | 2021-06-02 16:00 | NUR ---
PATIENT STILL DOESN'T WANT TO LISTEN TO HER AUDIOBOOKS, OFFERED THE AUDIOBOOKS PER SON'S REQUEST. AUDIOBOOKS REMAIN IN THE CORNER OF HER ROOM PER PATIENT'S REQUEST.
--- NOTE | 2021-06-02 18:00 | NUR ---
PATIENT IS SLEEPING IN BED
--- NOTE | 2021-06-02 21:10 | NUR ---
PT MEDICATED ORDERS PROVIDE AND ASSISTED WITH CARE NEEDS. PT WAS FOUND WITH ALL MONITORS OFF, SHE STATED "I PULLED THEM OFF BECAUSE I COULDN'T GET MY UNDERWEAR BACK ON WITH THOSE HOOKED TO ME." PT DENIED NEED OF ASSISTANCE WITH PAD AND UNDERWEAR AT THIS TIME, BUT SHE WAS RECONNECTED TO MONITOR. V/S ASSESSED STABLE AT THIS TIME. 95% ON 10LNC HIGH FLOW, TITRATED TO 10LNC HIGH FLOW AND STABLE AT 94%
--- NOTE | 2021-06-02 21:43 | NUR ---
PT CALLED ASKING FOR MONITOR BEEPING TO BE TURNED OFF. I ENTERED THE ROOM TO REPLACE MONITOR AND EXPLAINED TO HER THAT WE HAVE THE ALARMS FOR A PURPOSE OF MONITORING HER SATS. SHE STATED "WELL YOU JUST GAVE ME A SLEEPING PILL AND I AM NOT ASLEEP YET." I ASSURED HER THAT THE SLEEPING PILL TAKES A FEW MINUTES TO HELP AND MAYBE TRY TURNING THE TV OFF TO HELP HER GO TO SLEEP. NO S/O DISTRESS AT THIS TIME. CALL LIGHT IN HAND.
[2021-06-03] VITALS (21 sets, daily range): BP systolic 126–180; BP diastolic 50–94
--- NOTE | 2021-06-03 01:02 | NUR ---
Pt appears to be sleeping, resp even and non-labored. V/S stable with 02 sat 96% at this time.
--- NOTE | 2021-06-03 03:30 | NUR ---
Pt appears to be sleeping, no s/o distress at this time. )2 sats stable @94% on 8LNC High Flow. Resp even and non-labored.
--- NOTE | 2021-06-03 04:55 | NUR ---
Pt was sleeping, awoke to my being in the room. v/s assessed, 02 sats 97%, 02 titrated down to 6LNC High Flow. Pt denied any needs, Lab is in with pt at this time.
[2021-06-03 05:53] LABS: HEMATOCRIT 44.3 % (37.0-47.0); MEAN CELL VOLUME 99.8 fL CALC (80.0-100.0); MEAN CORPUSCULAR HGB 31.5 pG CALC (26.0-32.0); MEAN CORPUSCULAR HGB CONC 31.6 g/dL CAL (32.0-36.0); RED BLOOD COUNT 4.44 mill/uL (4.20-5.60); RED CELL DISTRI WIDTH 14.3 % (11.5-15.5)
[2021-06-03 06:07] LABS: ALBUMIN 2.7 g/dL (3.2-5.0); ALKALINE PHOSPHATASE 54 u/l (38-126); ANION GAP 8 (6-22 (CALC)); BILIRUBIN, TOTAL 0.5 mg/dL (0.0-1.4); BUN 38 mg/dL (8-23); BUN/CREATININE RATIO 48 (12-20 (CALC)); CARBON DIOXIDE 28 mmol/l (22-30); CHLORIDE 104 mmol/l (95-108); CREATININE 0.8 mg/dL (0.5-1.0); GFR > 60 ML/MIN (>=60 (CALC)); GFR FOR AFR.AMER. > 60 ML/MIN (>=60 (CALC)); POTASSIUM 4.6 mmol/l (3.5-5.1); SGOT/AST 30 u/l (9-36); SODIUM 135 mmol/l (137-146); TOTAL PROTEIN 5.5 g/dL (6.3-8.2)
--- NOTE | 2021-06-03 07:55 | NUR ---
10L SAT 90%
--- NOTE | 2021-06-03 11:13 | NUR ---
PT ON 10L
--- NOTE | 2021-06-03 15:55 | NUR ---
PT IS ON 8L HFNC SAT IS 96%
--- NOTE | 2021-06-03 15:57 | NUR ---
Patient participated with PT treatment protocol today. Patient participated with log rolling bed mobility ADLs and sit to stand push off transfers with 1 to 2 reps with occasional verbal and tactile cuing to help decrease trick movement and fall risks. Patient did gait ADLs for 5 to 8 feet x 2 reps with supervision on level surfaces with occasional verbal and tactile cuing to help decrease fall risks. Patient also did seated B LE AROM exercises doing hip flexion, hip adduction, hip abduction, hamstring curls, knee extension, and ankle pumps for 15 reps x 2 sets with occasional verbal and tactile cuing to help decrease trick movements and fall risks as patient prepares for discharge to home.
--- NOTE | 2021-06-03 19:00 | NUR ---
REPORT RECEIVED FROM Nick CHONG RN, CARE OF PT ASSUMED AT THIS TIME.
--- NOTE | 2021-06-03 20:14 | NUR ---
PT NOTED RESTING IN BED. WAKES EASILY. A&OX3. NO APPARENT DISTRESS NOTED. MEDICATED ORDERED. PT DENIES ANY CURRENT WANTS OR NEEDS AT THIS TIME. CALL LIGHT WITHIN REACH. WILL CONTINUE TO MONITOR.
--- NOTE | 2021-06-03 22:39 | NUR ---
PT ASSIGNED TO Jesenia ZUÑIGA LPN, REPORT PROVIDED AT BEDSIDE.
[2021-06-04] VITALS (15 sets, daily range): BP systolic 83–154; BP diastolic 42–72
--- NOTE | 2021-06-04 02:14 | NUR ---
PT REQUESTING SOMETHING TO HELP HER SLEEP. PT OFFERED SONATA AT THIS TIME. PT REFUSED AND REQUESTED XANAX. ADMINISTERED ORDERED. PT SLIGHTLY ANXIOUS. NO APPARENT DISTRESS NOTED. VSS. PT DENIES ANY OTHER CURRENT WANTS OR NEEDS. CALL LIGHT WITHIN REACH. WILL CONTINUE TO MONITOR.
--- NOTE | 2021-06-04 05:20 | NUR ---
PLANT CHIEF AT BEDSIDE TO COLLECT LABS.
[2021-06-04 06:33] LABS: HEMATOCRIT 48.8 % (37.0-47.0); HEMOGLOBIN 15.5 g/dl (12.0-16.0); MEAN CELL VOLUME 99.4 fL CALC (80.0-100.0); MEAN CORPUSCULAR HGB 31.6 pG CALC (26.0-32.0); MEAN CORPUSCULAR HGB CONC 31.8 g/dL CAL (32.0-36.0); RED BLOOD COUNT 4.91 mill/uL (4.20-5.60); RED CELL DISTRI WIDTH 14.1 % (11.5-15.5)
[2021-06-04 06:34] LABS: CREATININE 1.1 mg/dL (0.5-1.0); MAGNESIUM 2.2 mg/dL (1.6-2.3)
--- NOTE | 2021-06-04 10:01 | NUR ---
Patient participated with PT intervention today. Patient carried out log rolling bed mobility and sit to stand push off transfers with 1 to 3 reps with supervision to help decrease trick movements and fall risks. Patient did B LE AROM exercises doing hip flexion, hip adduction, hip abduction, hamstring curls, knee extension, and ankle pumps for 15 reps x 2 sets with occasional verbal and tactile cuing to help improve capability to carry out increased functional weight bearing ADLs while decreasing fall risks.
[2021-06-04] MEDS ORDERED: LISINOPRIL20 M1 PO (11:53)
[2021-06-04] MEDS ORDERED: DEXAMETHASON4 MG PO (11:54)
--- NOTE | 2021-06-04 14:20 | NUR ---
REPORT GIVEN TO JOCELYN AT [facility].
--- NOTE | 2021-06-04 14:35 | NUR ---
TRANSFERRED FROM BED TO ST[facility]ER BY TRANSPORT TEAM. PT SAFELY TRANSFERRED OF UNIT.
== END 2021-06-04 14:35 | DRG 177 ==
LOC: ED 17:18 → ED-I 18:30 → ED 20:28 → MS2 20:29 → ICU 05-31 17:36
PROVIDERS: Family Medicine; Internal Medicine; Nurse Practitioner; ADMIT Hospitalist; ATTEND Hospitalist
PROC: XW033E5 Introduction of Remdesivir Anti-infective into Peripheral Vein, Percutaneous Approach, New Technology Group 5 (ICD-10-PCS; principal; 2021-05-23)
DX: U07.1 COVID-19 (principal); J12.82 Pneumonia due to coronavirus disease 2019; J96.01 Acute respiratory failure with hypoxia; G93.49 Other encephalopathy; I10 Essential (primary) hypertension; H35.30 Unspecified macular degeneration; R00.1 Bradycardia, unspecified; F41.9 Anxiety disorder, unspecified; F03.90 Unspecified dementia, unspecified severity, without behavioral disturbance, psychotic disturbance, mood disturbance, and anxiety
CPT/HCPCS: J1650; J2060; S0166